=== PATIENT | female | born 1990 | race Caucasian/White ===

== ENCOUNTER 2019-12-09 14:24 | Outpatient (CLI) | payer OTHER, SELFPAY ==
--- NOTE | ~2019-12-09 | US_ITS ---
EXAMINATION: US retroperitoneal comp DATE: 12/09/2019 14:46 INDICATION: Frequent urinary tract infection TECHNIQUE: Multiple grayscale and Doppler ultrasound images of the kidneys were obtained. COMPARISON: None. FINDINGS: The right kidney measures 10.7 x 4.5 x 5.3 cm. The left kidney measures 10.2 x 5.1 x 5.2 cm . The kidneys demonstrate normal parenchymal echogenicity. There appears to be an IUD in the uterus. There is no hydronephrosis. The bladder is normal. IMPRESSION: 1. Normal kidneys without hydronephrosis. Reviewed, dictated and finalized at location A.
== END 2019-12-09 14:25 | disposition home or self-care (01) ==
PROVIDERS: PCP Internal Medicine; Visit Provider Internal Medicine
DX: Z87.440 Personal history of urinary (tract) infections (principal)
CPT/HCPCS: 76770

== ENCOUNTER 2020-01-18 22:36 | Emergency (ER) | payer OTHER, SELFPAY ==
[2020-01-18 22:48] VITALS: BP 146/82; PULSE 92; RESP 16; TEMP 36.6; O2SAT 99
--- NOTE | 2020-01-18 22:57 | ED.GENADULT ---
HPI - General Adult General Chief complaint: Abdominal Pain Stated complaint: rt sided abd pain Source: patient Mode of arrival: ambulatory Limitations: no limitations History of Present Illness Onset (ago): day(s) Radiation: abdomen Severity: moderate Severity scale (1-10): 4 Quality: burning and aching Pain Consistency: constant Relieving factors: none Exacerbating factors: none Associated symptoms: denies other symptoms Related Data Home Medications Medication Instructions Recorded Confirmed carvedilol 25 mg PO BID 09/21/19 09/21/19 enalapril maleate 10 mg PO DAILY 09/21/19 09/21/19 spironolactone 25 mg PO DAILY 09/21/19 09/21/19 Allergies Allergy/AdvReac Type Severity Reaction Status Date / Time Penicillins Allergy Unknown Nausea Verified 09/21/19 15:53 Sulfa (Sulfonamide Allergy Unknown Nausea Verified 09/21/19 15:53 Antibiotics) Review of Systems Review of Systems: All systems reviewed & are unremarkable except as noted in HPI and below PMFSH Past Medical History Medical History dilated cardiomyopathy Family History Family History Father Hypertension Patient's father is in good health Family history of cardiovascular disease Mother Patient's mother is in good health Grandparent Diabetes mellitus Asthma Social History Social History Smoking status: Never smoker Alcohol intake: current Exam Const: General: no acute distress and alert Orientation/consciousness: patient oriented x3 HENMT: Head: normal to inspection Eyes: Conjunctivae: conjunctivae normal Pupils: Equal, round and reactive pupils present Neck: Neck: normal visual inspection and no lymphadenopathy Chest: Chest palpation & inspection: normal inspection of the chest Resp: Effort & Inspection: normal respiratory effort Cardio: Rate: regular rate Rhythm: regular rhythm GI: GI Palp: Yes Soft to palpation and Yes Tenderness to palpation present (GI) ( Suprapubic tenderness) : General: Yes no CVA tenderness Back/Spine/Pelvis: Back: no CVA tenderness Skin: General skin exam: normal color Rashes: no rashes Neuro: General: patient oriented x3, moves all extremities and no meningeal signs Speech: normal speech Extrem: General: normal to inspection Psych: Mental Status: mental status grossly normal Course Vital Signs Vital signs: Vital Signs Temperature 36.6 C 01/18/20 22:48 Pulse Rate 92 01/18/20 22:48 Respiratory Rate 16 01/18/20 22:48 Blood Pressure 146/82 H 01/18/20 22:48 Pulse Oximetry 99 01/18/20 22:48 Temperature 36.6 C 01/18/20 22:48 Pulse Rate 92 01/18/20 22:48 Respiratory Rate 16 01/18/20 22:48 Blood Pressure 146/82 H 01/18/20 22:48 Pulse Oximetry 99 01/18/20 22:48 Medical Decision Making Vital Signs Vital Signs: Vital Signs Temperature 36.6 C 01/18/20 22:48 Pulse Rate 92 01/18/20 22:48 Respiratory Rate 16 01/18/20 22:48 Blood Pressure 146/82 H 01/18/20 22:48 Pulse Oximetry 99 01/18/20 22:48 Temperature 36.6 C 01/18/20 22:48 Pulse Rate 92 01/18/20 22:48 Respiratory Rate 16 01/18/20 22:48 Blood Pressure 146/82 H 01/18/20 22:48 Pulse Oximetry 99 01/18/20 22:48 Critical Care Time Critical Care Time Critical Care Time: No Discharge Plan Discharge Clinical Impression: UTI (urinary tract infection) Qualifiers: Urinary tract infection type: site unspecified Hematuria presence: without hematuria Qualified Code(s): N39.0 - Urinary tract infection, site not specified Patient Disposition: Home, Self-Care Condition: Stable Instructions: Antibiotic Form Additional Instructions: take medicine as prescribed and follow-up primary care physician if symptoms persist or worsen. Prescriptions: New nitrofurantoin monohy
[2020-01-18 23:10] LABS: Add Urine Microscopic? YES; Appearance Urine Sl Cloudy (Clear); Bilirubin Urine Negative (Negative); Blood Urine 2+ (Negative); Color Urine Straw (Yellow); Glucose Urine UA Negative (Negative); Ketones Urine Negative (Negative); Leukocyte Esterase Ur 1+ (Negative); Nitrate Urine Negative (Negative); Protein Urine Negative (Negative); Urobilinogen Urine 0.2 mg/dL (0.2-1.0)
[2020-01-18] MEDS: NITROFURANTOIN MONOHYD MACROCR 100 MG CAP PO (23:11)
[2020-01-18] MEDS: TRAMADOL HCL 50 MG TABLET PO (23:15)
[2020-01-18 23:17] LABS: Bacteria Urine 2+ /hpf; Squamous Epithelial Cell Urine Few /hpf (Few); WBC Urine 16-20 /hpf (0-3)
[2020-01-18 23:18] VITALS: BP 146/82; PULSE 92; O2SAT 99
== END 2020-01-18 23:20 | disposition home or self-care (01) ==
PROVIDERS: Emergency Provider Emergency Medicine; PCP Internal Medicine
DX: N39.0 Urinary tract infection, site not specified (principal)
CPT/HCPCS: 81001; 99283; A9270

== ENCOUNTER 2021-09-14 11:55 | Outpatient (CLI) | payer BC, SELFPAY ==
[2021-09-14 12:50] LABS: SARS-CoV-2 RNA PCR Negative (Negative)
[2021-09-14 15:04] LABS: Influenza A QL RT-PCR Negative (Negative); Influenza B QL RT-PCR Negative (Negative)
== END 2021-09-14 11:56 | disposition home or self-care (01) ==
LOC: CHSLAB 12:01
PROVIDERS: PCP Internal Medicine; Visit Provider Internal Medicine
DX: J06.9 Acute upper respiratory infection, unspecified (principal); Z20.822 Contact with and (suspected) exposure to COVID-19
CPT/HCPCS: 87502; C9803; U0003; U0005

== ENCOUNTER 2022-11-08 10:00 | Outpatient (CLI) | payer OTHER, SELFPAY ==
[2022-11-08 21:09] LABS: Anion Gap 5 mmol/L (8-16); Blood Urea Nitrogen 11 mg/dL (7-17); Calcium 9.3 mg/dL (8.4-10.2); Carbon Dioxide 30 mmol/L (22-30); Chloride 101 mmol/L (98-107); Estimated Glomerular Filt Rate > 60; Glucose 124 mg/dL (65-110); Potassium 4.4 mmol/L (3.4-5.0); Sodium 136 mmol/L (137-145)
== END 2022-11-08 10:01 | disposition home or self-care (01) ==
LOC: ANHGOSHLAB 10:04
PROVIDERS: PCP Internal Medicine
DX: O90.3 Peripartum cardiomyopathy (principal); Z3A.00 Weeks of gestation of pregnancy not specified
CPT/HCPCS: 36415; 80048

== ENCOUNTER 2023-01-28 09:43 | Emergency (ER) | payer OTHER, SELFPAY ==
[2023-01-28 09:56] VITALS: BP 137/82; PULSE 98; RESP 16; TEMP 36.3; O2SAT 100
--- NOTE | 2023-01-28 09:57 | ED.URI ---
HPI - URI/Sore Throat General Chief Complaint: Upper Respiratory Infection Stated Complaint: sore throat Source: patient and RN notes reviewed History of Present Illness HPI Narrative: 32-year-old female presents to urgent care with complaints of a sore throat, headache, and some congestion since yesterday. Patient denies any fevers, chills, ear pain, vomiting, chest pain, shortness of breath. Patient states she has taken Zyrtec and Benadryl for her symptoms. Some parts of this dictation were generated by voice recognition software and may contain typographical and/or grammatical inaccuracies. Related Data Home Medications Medication Instructions Recorded Confirmed carvedilol 25 mg tablet 25 mg PO BID 09/21/19 01/18/20 enalapril maleate 10 mg tablet 10 mg PO DAILY 09/21/19 01/18/20 spironolactone 25 mg tablet 25 mg PO DAILY 09/21/19 01/18/20 dapagliflozin 5 mg tablet (Farxiga) mg 01/28/23 sacubitril 24 mg-valsartan 26 mg tablet 01/28/23 tablet (Entresto) Allergies Allergy/AdvReac Type Severity Reaction Status Date / Time Penicillins Allergy Unknown Nausea Verified 01/28/23 09:49 Sulfa (Sulfonamide Allergy Unknown Nausea Verified 01/28/23 09:49 Antibiotics) Review of Systems Review of Systems: Pertinent positives and pertinent negatives per HPI. [facility] Past Medical History Medical History (Updated 01/28/23 @ 10:05 by Milena Licea APRN) dilated cardiomyopathy Family History Family History Father Hypertension Patient's father is in good health Family history of cardiovascular disease Mother Patient's mother is in good health Grandparent Diabetes mellitus Asthma Social History Social History Smoking status: Never smoker Alcohol intake: current Comments At the time of my signature, I reviewed and agree with the nursing past medical, surgical, social, and family history. There is no relevant family history pertinent to the patient complaint. Exam Narrative: GENERAL: This is a well-nourished, well-developed patient, in no apparent distress. HEAD: normocephalic, atraumatic. EYES: Sclera clear/white. Vision is grossly intact. EARS: External ears normal, auditory canals clear and without drainage, TMs normal without perforation. Hearing grossly intact. NOSE: External nose normal with no obvious nasal discharge, nares without redness, no rhinorrhea. THROAT: Mucous membranes moist, posterior pharynx clear. NECK: Neck supple, non-tender without lymphadenopathy, masses or thyromegaly. CARDIOVASCULAR: Regular rate and rhythm without murmurs, gallops, or rubs. RESPIRATORY: Clear to auscultation. Breath sounds equal bilaterally. No wheezes, rales, or rhonchi. SKIN: warm, intact with no suspicious lesions or rash, good texture and turgor. NEURO: awake, alert, and oriented to person, place and time. There were no obvious focal neurologic abnormalities. Course Course Level of Care: Express Care Visit Vital Signs Vital signs: Vital Signs Temperature 97.4 F L 01/28/23 09:56 Pulse Rate 98 01/28/23 09:56 Respiratory Rate 16 01/28/23 09:56 Blood Pressure 137/82 01/28/23 09:56 Pulse Oximetry 100 01/28/23 09:56 Temperature 97.4 F L 01/28/23 09:56 Pulse Rate 98 01/28/23 09:56 Respiratory Rate 16 01/28/23 09:56 Blood Pressure 137/82 01/28/23 09:56 Pulse Oximetry 100 01/28/23 09:56 reviewed MDM - URI/Sore Throat MDM Narrative Medical decision making narrative: Viral illness may last between 7-21 days; antibiotics do not cure viral illness and are NOT recommended at this time. Also, recommend symptomatic treatment includes: rest, fluids, and increase humidity of the air at home. Recommend Acetaminophen as directed on the bottle to reduce fever, pain, headache. Please schedule a follow-up visit with your personal physic
== END 2023-01-28 10:06 | disposition home or self-care (01) ==
PROVIDERS: Emergency Provider Nurse Practitioner Family; PCP Internal Medicine
DX: J02.9 Acute pharyngitis, unspecified (principal)
CPT/HCPCS: 87081; 87880; 99213; G0463

== ENCOUNTER 2023-05-01 10:10 | Outpatient (CLI) | payer OTHER, SELFPAY ==
[2023-05-01 14:26] LABS: Anion Gap 10 mmol/L (8-16); Blood Urea Nitrogen 11 mg/dL (7-17); Calcium 9.6 mg/dL (8.4-10.2); Carbon Dioxide 28 mmol/L (22-30); Chloride 101 mmol/L (98-107); Estimated Glomerular Filt Rate > 60; Glucose 111 mg/dL (65-110); Magnesium 2.4 mg/dL (1.6-2.3); Sodium 139 mmol/L (137-145)
[2023-05-01 14:37] LABS: NT Pro B Type Natriuretic Pept 61 pg/mL (19.9-100)
== END 2023-05-01 10:11 | disposition home or self-care (01) ==
LOC: ANHGOSHLAB 10:15
PROVIDERS: PCP Internal Medicine
DX: O90.3 Peripartum cardiomyopathy (principal)
CPT/HCPCS: 36415; 80048; 83735; 83880

== ENCOUNTER 2023-11-09 09:14 | Emergency (ER) | payer OTHER, SELFPAY ==
[2023-11-09 09:19] VITALS: BP 145/73; PULSE 109; RESP 16; TEMP 35.8; O2SAT 99
--- NOTE | 2023-11-09 10:26 | ED.URI ---
HPI - URI/Sore Throat General Chief Complaint: Upper Respiratory Infection Stated Complaint: congestion/headache/throat Time Seen by Provider: 11/09/23 10:20 Source: patient, RN notes reviewed and old records reviewed Mode of arrival: ambulatory Limitations: no limitations History of Present Illness HPI Narrative: 33 year old female who presents to [facility] care with complaints of sore throat,fever, cough, ear pain and sinus pressure since Sunday of this week. Patient reports that she has been taking Zyrtec and Benadryl for her symptoms. Patient reports that highest fevers are around a 100F. Patient reports no body aches, denies any shortness of breath, no nausea vomiting or diarrhea. MD elicited complaint: fever, cough, sore throat, sinus pain (ear pain) and other Onset (ago): day(s) (4) Pain scale (0-10): 4 Able to tolerate fluids by mouth: Yes Treatments prior to arrival: other (Zyrtec and Benadryl) Related Data Home Medications Medication Instructions Recorded Confirmed carvedilol 25 mg tablet 25 mg PO BID 09/21/19 01/28/23 spironolactone 25 mg tablet 25 mg PO DAILY 09/21/19 01/28/23 sacubitril 24 mg-valsartan 26 mg 1 tablet PO BID 01/28/23 01/28/23 tablet (Entresto) Allergies Allergy/AdvReac Type Severity Reaction Status Date / Time Penicillins AdvReac Unknown Nausea Verified 11/09/23 10:17 Sulfa (Sulfonamide AdvReac Unknown Nausea Verified 11/09/23 10:17 Antibiotics) Review of Systems Review of Systems: CONSTITUTIONAL:Reports malaise, chills, sweats, or fever. EYES: Denies visual changes, redness, or discharge. ENT: Reports rhinorrhea, congestion, sinus pain,left otalgia and sore throat. CARDIOVASCULAR: Denies chest pain, palpitations, or edema. RESPIRATORY: Reports cough.? Denies dyspnea. GASTROINTESTINAL: Denies abdominal pain, nausea, vomiting, diarrhea SKIN: Denies rash or itching. MUSCULOSKELETAL: Denies myalgia. NEUROLOGIC: Reports headache. All systems reviewed & are unremarkable except as noted in HPI and below PMFSH Past Medical History Medical History (Updated 11/10/23 @ 13:14 by Makayla Haque NP) Hypertension Pacemaker dilated cardiomyopathy Surgical History Surgical History (Updated 11/10/23 @ 13:13 by Makayla Haque NP) Previous section Family History Family History Father Hypertension Patient's father is in good health Family history of cardiovascular disease Mother Patient's mother is in good health Grandparent Diabetes mellitus Asthma Social History Social History Smoking status: Never smoker Alcohol intake: current Comments At time of signature, agree with nursing past medical, surgical, social and family history. There is no relevant family history pertinent to the presenting complaint Exam Narrative: GENERAL: Well-appearing, well-nourished, and in no acute distress. HEAD: Normocephalic EYES: PERRLA, conjunctivae clear ENT: Nares clear, turbinates edematous and erythematous, clear discharge. Mucous membranes moist.Left TM red ,Right TM pearly hernadez with dull light reflex; no tragal tenderness. Oropharynx erythematous without lesions. Tonsils not enlarged and without exudate, no drooling, no hoarseness, no trismus, uvula midline. NECK: Supple. No lymphadenopathy CHEST: Clear to auscultation, breath sounds equal. No wheezing, rhonchi, rales, or stridor. No respiratory distress, speaks in full sentences.coughSAO2 99% on room air HEART: Regular rate and rhythm. No murmur heard. SKIN: Warm, dry, no rash. NEURO: Alert and oriented x3. PSYCH: Normal mood and affect Course Course Emergency Course: Patient is aware of diagnosis, understands and agrees to treatment plan.? Anticipatory guidance given.? Patient agrees to follow-up as directed and is aware of reasons to seek care at t
== END 2023-11-09 10:38 | disposition home or self-care (01) ==
PROVIDERS: Emergency Provider Registered Nurse; PCP Internal Medicine
DX: H65.02 Acute serous otitis media, left ear (principal); J06.9 Acute upper respiratory infection, unspecified; I10 Essential (primary) hypertension; Z95.0 Presence of cardiac pacemaker
CPT/HCPCS: 87081; 87880; 99213; G0463

== ENCOUNTER 2025-03-10 11:46 | Outpatient (CLI) | payer OTHER, SELFPAY ==
--- NOTE | ~2025-03-10 | XR_ITS ---
Left elbow Technique: AP, oblique, and lateral views were obtained. Clinical History: Pain Findings: No acute fracture or dislocation is seen. Osseous alignment is anatomic. Joint spaces are p reserved. There is no displacement of the fat pads, and soft tissues are unremarkable. Impression: Unremarkable radiographs. Reviewed, dictated and finalized at location . Impression: Unremarkable radiographs.
--- NOTE | ~2025-03-10 | XR_ITS ---
Cervical Spine: AP, lateral, open-mouth views Clinical History: Pain Findings: There is straightening of the normal cervical lordosis. The vertebral bodies and posterior elements appear intact. The intervertebral disc spaces are well maintained. Pre-vertebral soft tiss ues are unremarkable. Impression: Straightening of the normal cervical lordosis, otherwise unremarkable exam. Reviewed, dictated and finalized at location . Impression: Straightening of the normal cervical lordosis, otherwise unremarkable exam.
--- OUTSIDE RECORDS SUMMARY | 2025-03-10 12:41 | XMS_ITS | Encounter Summary ---
Author Organization [facility] Address [address] [place] [address] Phone Care Team Providers Care Proof Coin Collector Name Role Phone Naomy Lai MD Primary Care Provider [phone] No, Physician Primary Care Provider [phone] Naomy Lai MD Primary Care Provider [phone] Naomy Lai MD Primary Care Provider [phone] Nakita, Physician Primary Care Provider [phone] Naomy Lai MD Primary Care Provider [phone] Joan Oviedo MD Primary Care Provider Sen Menon MD Primary Care Provider [phone] Concepcion Andrea MD Unavailable [phone] Yolie Lyon RN Unavailable Unava ilable Ruperto Benavides RN Unavailable Unav ailable Encounter Details Date Type Department Care Team (Late st Contact Info) Description 01/25/2017 Orders Only [facility] Provider, MD Yang [address] [place] [id number] Social History Tobacco Use Types Packs/Day Years Used Date Smoking Tobacco: Never Assessed Comments Unknown Sex and Gender Information Value Date Recorded Sex Assigned at Not on file 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 us Historical Provider [facility] Final Result documented in this encounter Visit Diagnoses Not on filedocumented in this encounter Care Teams Proof Coin Collector Relationship Specialty Start Date End Date Naomy Lai MD [address] [place] [address] PCP - General 01/25/17 10/02/17 No, Physician PCP - General 10/03/17 10/03/17 Naomy Lai MD [address] [place] [address] PCP - General 10/04/17 10/11/17 Naomy Lai MD [address] [place] [address] PCP - General 10/12/17 10/12/17 No, Physician PCP - General 10/13/17 10/21/17 Naomy Lai MD [address] [place] [address] PCP - General 10/22/17 01/09/18 Joan Oviedo MD [address] [facility] [address] [place] [address] PCP - General 01/10/18 10/19/20 Sen Menon MD [address] [address] [place] [address] PCP - General Internal Medicine 10/20/20 Concepcion Andrea MD [address] [facility] [address] [place] [address] Consulting Physician Cardiology 03/05/24 Yolie Lyon, cotton bag clipperTube Test Technician Cardiology 03/05/24 Ruperto Benavides, cotton bag clipperTube Test Technician Cardiology 03/05/24 documented as of this encounter
--- OUTSIDE RECORDS SUMMARY | 2025-03-10 12:41 | XMS_ITS | Encounter Summary ---
Author Organization [facility] Address [address] [place] [address] Phone Care Team Providers Care Senior Power Plant Operator Name Role Phone Naomy Lai MD Primary Care Provider [phone] No, Physician Primary Care Provider [phone] Naomy Lai MD Primary Care Provider [phone] Naomy Lai MD Primary Care Provider [phone] Nakita, Physician Primary Care Provider [phone] Naomy Lai MD Primary Care Provider [phone] Joan Oviedo MD Primary Care Provider Sen Menon MD Primary Care Provider [phone] Concepcion Andrea MD Unavailable [phone] Yolie Lyon RN Unavailable Unava ilable Ruperto Benavides RN Unavailable Unav ailable Encounter Details Date Type Department Care Team (Late st Contact Info) Description 02/04/2016 Orders Only [facility] Provider, MD Yang [address] [place] [address] Social History Tobacco Use Types Packs/Day Years Used Date Smoking Tobacco: Never Assessed Comments Unknown Sex and Gender Information Value Date Recorded Sex Assigned at Not on file 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 us Historical Provider [facility]OCK[facility] Final Result documented in this encounter Visit Diagnoses Not on filedocumented in this encounter Care Teams Senior Power Plant Operator Relationship Specialty Start Date End Date Naomy Lai MD [address] [place] [address] PCP - General 01/25/17 10/02/17 No, Physician PCP - General 10/03/17 10/03/17 Naomy Lai MD [address] [place] [address] PCP - General 10/04/17 10/11/17 Naomy Lai MD [address] [place] [address] PCP - General 10/12/17 10/12/17 No, Physician PCP - General 10/13/17 10/21/17 Naomy Lai MD [address] [place] [address] PCP - General 10/22/17 01/09/18 Joan Oviedo MD [address] [facility] [address] [place] [address] PCP - General 01/10/18 10/19/20 Sen Menon MD [address] [place] [address] PCP - General Internal Medicine 10/20/20 Concepcion Andrea MD [address] [facility] [address] [place] [address] Consulting Physician Cardiology 03/05/24 Yolie Lyon, consumer recruiterPipe Finishing Supervisor Cardiology 03/05/24 Ruperto Benavides, consumer recruiterPipe Finishing Supervisor Cardiology 03/05/24 documented as of this encounter
--- OUTSIDE RECORDS SUMMARY | 2025-03-10 12:41 | XMS_ITS | Encounter Summary ---
Author Organization [facility] Address [address] [place] [address] Phone Care Team Providers Care Filament Coil Winder Name Role Phone Naomy Lai MD Primary Care Provider [phone] No, Physician Primary Care Provider [phone] Naomy Lai MD Primary Care Provider [phone] Naomy Lai MD Primary Care Provider [phone] Nakita, Physician Primary Care Provider [phone] Naomy Lai MD Primary Care Provider [phone] Joan Oviedo MD Primary Care Provider Sen Menon MD Primary Care Provider [phone] Concepcion Andrea MD Unavailable [phone] Yolie Lyon RN Unavailable Unava ilable Ruperto Benavides RN Unavailable Unav ailable Encounter Details Date Type Department Care Team (Late st Contact Info) Description 08/12/2017 Orders Only [facility] Provider, MD Yang [address] [place] [address] Social History Tobacco Use Types Packs/Day Years Used Date Smoking Tobacco: Never Assessed Comments Unknown Sex and Gender Information Value Date Recorded Sex Assigned at Not on file 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 us Historical Provider [facility] CROCKER Final Result documented in this encounter Visit Diagnoses Not on filedocumented in this encounter Care Teams Filament Coil Winder Relationship Specialty Start Date End Date Naomy Lai MD [address] [place] [address] PCP - General 01/25/17 10/02/17 No, Physician PCP - General 10/03/17 10/03/17 Naomy Lai MD [address] [place] [address] PCP - General 10/04/17 10/11/17 Naomy Lai MD [address] [place] [address] PCP - General 10/12/17 10/12/17 No, Physician PCP - General 10/13/17 10/21/17 Naomy Lai MD [address] [place] [address] PCP - General 10/22/17 01/09/18 Joan Oviedo MD [address] [facility] [address] [place] [address] PCP - General 01/10/18 10/19/20 Sen Menon MD [address] [place] [address] PCP - General Internal Medicine 10/20/20 Concepcion Andrea MD [address] [facility] [address] [place] [address] Consulting Physician Cardiology 03/05/24 Yolie Lyon, legal consultantMold Filling Operator Cardiology 03/05/24 Ruperto Benavides, legal consultantMold Filling Operator Cardiology 03/05/24 documented as of this encounter
--- OUTSIDE RECORDS SUMMARY | 2025-03-10 12:41 | XMS_ITS | Encounter Summary ---
Author Organization [facility] Address [address] [place] [address] Phone Care Team Providers Care Licensed Psychologist Director Name Role Phone Joan Oviedo MD Primary Care Provider Sen Menon MD Primary Care Provider [phone] Concepcion Andrea MD Unavailable [phone] Yolie Lyon RN Unavailable Unava ilable Ruperto Benavides RN Unavailable Unav ailable Encounter Details Date Type Department Care Team (Late st Contact Info) Description 01/10/2018 Orders Only [facility] ProviderYang MD [address] [place] [address] Social History Tobacco Use Types Packs/Day Years Used Date Smoking Tobacco: Never Comments Unknown Sex and Gender Information Value Date Recorded Sex Assigned at Not on file Legal Sex Female 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 us Historical Provider [facility] CROCKER Final Result documented in this encounter Visit Diagnoses Not on filedocumented in this encounter Care Teams Licensed Psychologist Director Relationship Specialty Start Date End Date Joan Oviedo MD [address] [place] [address] PCP - General 01/10/18 10/19/20 Sen Menon MD [address] [address] [place] [address] PCP - General Internal Medicine 10/20/20 Concepcion Andrea MD [address] [address] Consulting Physician Cardiology 03/05/24 Yolie Lyon, digital forensics examinerSpeed Operator Cardiology 03/05/24 Ruperto Benavides, digital forensics examinerSpeed Operator Cardiology 03/05/24 documented as of this encounter
--- OUTSIDE RECORDS SUMMARY | 2025-03-10 12:42 | XMS_ITS | Clinical Summary ---
Author Organization [facility] Lubna Mckenzie nsion Address [address] [place] [address] Care Team Providers Care Application Defense Manager Name Role Phone Sen Menon MD Primary Care Provider [phone] Concepcion Andrea MD Unavailable [phone] Yolie Lyon RN Unavailable Unava ilable Ruperto Benavides RN Unavailable Unav ailable Allergies Active Allergy Reactions Criticality Noted Date Comments Penicillins Vomiting,Nausea Only Low 06/21/2011 Sulfa (Sulfonamide Antibiotics) Nausea only Low Medications spironolactone (ALDACTONE) 25 mg tablet Take 1 tablet (25 mg total) by mouth daily 90 tablet 3 4 07/29/20 25 Active sacubitriL-vals michaela (ENTRESTO) 24-26 mg tabletIndicatio ns:chronic heart failure Take 1 tablet by mouth 2 (two) times a day 180 tablet 3 5 11/28/19 26 Active carvediloL (COREG) 25 mg tablet Take 0.5 tablets (12.5 mg total) by mouth 2 (two) times a day 30 tablet 5 04/01/20 25 Active carvediloL (COREG) 25 mg tablet Take 0.5 tablets (12.5 mg total) by mouth 2 (two) times a day 90 tablet 5 03/02/20 25 Discontinu ed(Reorder ) Active Problems Problem Noted Date Diagnosed Date 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, dual chamber 12/2015 [facility]), inability to place an LV lead at that time. -Follows with Dr. Andrea, most recent LVEF 27% in 09/2022 -Repeat echocardiogram scheduled at time of FU visit with Dr Andrea in 02/2025 Assessment & Plan (04/12/2018 1:14 PM CDT): She has had partial recovery of her LV function. She is on a good regimen which he is tolerating well at this time. We will continue her on carvedilol, enalapril, and spironolactone. We will repeat an echocardiogram on return in 6 months. ICD (implantable cardioverter-defibrillator) in place 04/12/2018 Assessment & Plan (01/06/2025 1:29 PM CDT): -Dual chamber ICD is functioning appropriately as programmed -Lead impedances, sensing, and thresholds are stable -No programming changes -Continue remote monitoring quarterly -She has no history of ICD shocks or required any ICD therapies -Her ICD is nearing LEWIS ~6 months, we discussed generator change. If decline in LVEF or worsening HF symptoms, can consider re-attempting transvenous LV lead or epicardial LV lead at time of generator change. Assessment & Plan (04/12/2018 1:15 PM CDT): She will continue to follow up with Dr. Cagle in electrophysiology. Class 1 obesity without seri ous comorbidity with body mass index (BMI) of 33.0 to 33.9 in adult 04/12/2018 Assessment & Plan (04/12/2018 1:15 PM CDT): We had a discussion about strategies for weight loss in the barriers she is facing for weight loss. I will refer her to cardiac rehab at [facility]. She does have a lot of anxiety about exercising in the setting of her systolic heart failure. I think that the cardiac rehab will help build her confidence in her capacity to exercise. I also encouraged her to find a local weight watchers program and the support from that might be beneficial in losing weight. I encouraged her to target a weight loss goal of 1 lb per month. Encounters Date Type Department Care Team Description 01/07/2025 Orders Only [facility] Cardiology [facility] Medical Office Building [address] [place] [address] Reese Cagle MD 01/06/2025 1:00 PM CDT Office Visit [facility] Cardiology [address] [place] [address] 8th [place] [address] [place] [address] Sagrario Leon NP Peripartum cardiomyopathy (Primary Dx); ICD (implantable cardioverter-defibrill ator) in place 01/06/2025 12:30 PM CDT Ancillary Procedure [facility] Cardiology [address] [place] [address] 8th [place] [address] [place] [id number] NICM (nonischemic cardiomyopathy) (HCC) (Primary Dx); Fitting or adjustment of automatic implantable cardioverter-defibrill ator; Peripartum cardiomyopathy from Last 3 Months Surgical History Surgery Date Site/Laterality Comments [place] DELIVERY ONLY Section - (Added by TW Conv) CARDIAC PACEMAKER PLACEMENT 09/24/2015 - 09/23/2016 Medical History Medical History Date Comments Personal history of other di seases of the nervous system and sense organs History of migrain e with aura - (Added by TW Conv) Personal history of other di seases of the circulatory system History of hypertension - (A dded by TW Conv) Migraine Family History Medical History Relation Name Comments Heart attack Father Family history of myocardial infarction - (Added by TW Conv) Hypertension Father Family history of hypertension - (Added by TW Conv)/Family history of hypertension - (Added by TW Conv) Breast cancer Mother's Sister Relation Name Status Comments Father Mother's Sister Social History Tobacco Use Types Packs/Day Years Used Date Smoking Tobacco: Never Smokeless Tobacco: Never AUDIT-C Answer Date Recorded Frequency of Alcohol Consumption Not on file 05/07/2023 Q2: How many drinks containi ng alcohol do you have on a typical day when you are drinking? 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 Gender Identity Female 06/26/2024 9:16 PM CDT Sexual Orientation Straight 06/26/2024 9: 16 PM CDT Obstetrics History Para Term AB IAB SAB Ectopic Multiple Livin g Live Births 1 1 1 1 1 Date Outcome GA Total Labor Labor/2nd/3rd Weight Sex Type Anes PTL Vera A1 A5 Name Clin 2015 Term M CS-Un spec Living Last Filed Vital Signs Vital Sign Reading Time Taken Comments Blood Pressure 133/83 01/06/2025 12:35 PM CDT Pulse 82 01/25/2023 10:23 AM CDT Temperature 32.8 C (91 F) 01/06/2025 12:35 PM CDT Respiratory Rate - - Oxygen Saturation 98% 01/06/2025 12:35 PM CDT Inhaled Oxygen Concentration - - Weight 88.6 kg (195 lb 6.4 oz) 01/06/2025 12:35 PM CDT Height 157.5 cm (5' 2) 01/06/2025 12:35 PM CDT Body Mass Index 35.74 01/06/2025 12:35 PM CDT Plan of Treatment Health Maintenance Due Date Last Done Comments Cervical Cancer Screening 1992 Depression Screening 1992 Hepatitis C Screening 1992 DTaP/Tdap/Td Vaccine (1 - Tdap) 2003 Varicella Vaccines (1 of 2 - 13+ 2-dose series) 2005 Hepatitis B Screening 2010 Regular Well Visit/Exam 18-64 2010 Influenza Vaccine (Season Ended) 2025 08/02/20 15 HPV Vaccines Aged Out No longer eligi ble based on patient's age to complete this topic Pneumococcal vaccine <65 Aged Out No longer eligible based on patient's age to complete this topic Procedures Procedure Name Priority Date/Time Associated Diagnosis Comments DEVICE CHECK - REMOTE Routine 01/07/2025 7:58 AM CDT DEVICE CHECK - IN OFFICE Routine 01/06/2025 12:28 PM CDT NICM (nonischemic cardiomyopathy) (HCC) Fitting or adjustment of automatic implantable cardioverter-defibrill ator Peripartum cardiomyopathy from Last 3 Months Results * DEVICE CHECK - REMOTE (01/07/2025 7:58 AM CDT) Anatomical Region Laterality Modality Other 01/07/2025 7:58 AM CDT Narrative 01/13/2025 4:24 PM CDT Interpretation Summary: Battery and Leads (BL) Normal parameters noted on battery and lead(s) --- 6 months remaining (this is an estimate based on prior usage) Presenting Rhythm ([place]) Atrial Sensing-Ventricular Sensing (-VS) --- rate 72 Arrhythmic events (AE) No new arrhythmic events in monitoring period Transmission Information (TI) Device Summary Report Procedure Note Reese Cagle MD - 01/13/2025 Interpretation Summary: Battery and Leads (BL) Normal parameters noted on battery and lead(s) --- 6 months remaining(this is an estimate based on prior usage) Presenting Rhythm ([place]) Atrial Sensing-Ventricular Sensing (-VS) --- rate 72 Arrhythmic events (AE) No new arrhythmic events in monitoring period Transmission Information (TI) Device Summary Report Reese Cagle MD CV CARDIAC SERVICES PRO CEDURES Final Result * DEVICE CHECK - IN OFFICE (01/06/2025 12:28 PM CDT) Anatomical Region Laterality Modality Other 01/06/2025 2:00 AM CDT Narrative 01/09/2025 8:28 AM CDT Interpretation Summary: Battery and Leads (BL) Less than 1 year of battery longevity noted --- Estimated battery longevity 6.1 MONTHS Presenting Rhythm ([place]) Atrial Sensing-Ventricular Sensing (-VS) --- NSR 97 bpm Arrhythmic events (AE) No new arrhythmic events in monitoring period Transmission Information (TI) Device Summary Report Procedure Note Lucio Currie MD - 01/09/2025 Interpretation Summary: Battery and Leads (BL) Less than 1 year of battery longevity noted --- Estimated batterylongevity 6.1 MONTHS Presenting Rhythm ([place]) Atrial Sensing-Ventricular Sensing (-VS) --- NSR 97 bpm Arrhythmic events (AE) No new arrhythmic events in monitoring period Transmission Information (TI) Device Summary Report Reese Cagle MD CV CARDIAC SERVICES PRO CEDURES Final Result from Last 3 Months Insurance [facility] [place] [place] [address] [place] [address] CHO[place] [address] Care Teams Application Defense Manager Relationship Specialty Start Date End Date Sen Menon MD PCP - General Internal Medicine 10/20/20 Concepcion Andrea MD [address] [address] Consulting Physician Cardiology 03/05/24 Yolie Lyon, upholstery handlerManagement Consultant Cardiology 03/05/24 Ruperto Benavides, upholstery handlerManagement Consultant Cardiology 03/05/24
--- OUTSIDE RECORDS SUMMARY | 2025-03-10 12:42 | XMS_ITS | Referral Summary ---
Author Organization [facility] Lubna Gómez Extelmira nsion Address [address] [place] [address] Care Team Providers Care Rating Officer Name Role Phone Sen Menon MD Primary Care Provider [phone] Concepcion Andrea MD Unavailable [phone] Yolie Lyon RN Unavailable Unava ilable Ruperto Benavides RN Unavailable Unav ailable Encounters Date Type Department Care Team Description 01/07/2025 Orders Only [facility] Cardiology [facility] Medical Office Building [address] [place] [phone] Reese Cagle MD 01/06/2025 1:00 PM CDT Office Visit [facility] Cardiology [address] [place] [address] 8th [place] [address] [place] [address] Sagrario Leon NP Peripartum cardiomyopathy (Primary Dx); ICD (implantable cardioverter-defibrill ator) in place 01/06/2025 12:30 PM CDT Ancillary Procedure [facility] Cardiology [address] [place] [address] Medicine 8th [place] [address] [place] [phone] NICM (nonischemic cardiomyopathy) (HCC) (Primary Dx); Fitting or adjustment of automatic implantable cardioverter-defibrill ator; Peripartum cardiomyopathy from Last 3 Months Allergies Active Allergy Reactions Criticality Noted Date [...] prevention ICD ([employer]. [place]on, dual chamber 12/2015 [facility]), inability to place an LV lead [...] will refer her to cardiac rehab at [facility]. She does have a lot of anxiety [...] loss goal of 1 lb per month. 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 Gender Identity Female 06/26/2024 9:16 PM CDT Sexual Orientation Straight 06/26/2024 9: 16 PM CDT Last Filed Vital Signs Vital Sign Reading [...] 01/06/2025 12:35 PM CDT Plan of Treatment Not on file Procedures Procedure Name Priority Date/Time Associated Diagnosis [...] estimate based on prior usage) Presenting Rhythm ([place]) Atrial Sensing-Ventricular Sensing (-VS) --- rate 72 Arrhythmic events (AE) No new arrhythmic events in monitoring period Transmission Information (TI) Device Summary Report Procedure Note Reese Cagle MD - 01/13/2025 Interpretation Summary: Battery and Leads (BL) Normal parameters noted on battery and lead(s) --- 6 months remaining(this is an estimate based on prior usage) Presenting Rhythm ([place]) Atrial Sensing-Ventricular Sensing (-VS) --- rate 72 Arrhythmic events (AE) No new arrhythmic events in monitoring period Transmission Information (TI) Device Summary Report us Reese Cagle MD CV CARDIAC SERVICES PRO CEDURES Final Result * DEVICE CHECK - IN OFFICE (01/06/2025 12:28 PM CDT) Anatomical Region Laterality Modality Other 01/06/2025 2:00 AM CDT Narrative 01/09/2025 8:28 AM CDT Interpretation Summary: Battery and Leads (BL) Less than 1 year of battery longevity noted --- Estimated battery longevity 6.1 MONTHS Presenting Rhythm ([place]) Atrial Sensing-Ventricular Sensing (-VS) --- NSR 97 bpm Arrhythmic events (AE) No new arrhythmic events in monitoring period Transmission Information (TI) Device Summary Report Procedure Note Lucio Currie MD - 01/09/2025 Interpretation Summary: Battery and Leads (BL) Less than 1 year of battery longevity noted --- Estimated batterylongevity 6.1 MONTHS Presenting Rhythm ([place]) Atrial Sensing-Ventricular Sensing (-VS) --- NSR 97 bpm Arrhythmic events (AE) No new arrhythmic events in monitoring period Transmission Information (TI) Device Summary Report Reese Cagle MD CV CARDIAC SERVICES PRO CEDURES Final Result from Last 3 Months Insurance [facility] CHOICE PLUS [facility] H[facility]/PPO Address: [facility] [address] [place] [address] [place] MEDICARE [facility] Address: [address] [address] [place] [address] [place] [address] CHOICE PR[place] [address] Care Teams Rating Officer Relationship Specialty Start Date End Date Sen Menon MD PCP - General Internal Medicine 10/20/20 Concepcion Andrea MD [address] [address] Consulting Physician Cardiology 03/05/24 Yolie Lyon, video game script writerSupervisor Inspection Room Cardiology 03/05/24 Ruperto Benavides, video game script writerSupervisor Inspection Room Cardiology 03/05/24
== END 2025-03-10 11:47 | disposition home or self-care (01) ==
PROVIDERS: PCP Internal Medicine; Visit Provider Internal Medicine
DX: M54.2 Cervicalgia (principal); M25.522 Pain in left elbow; M25.562 Pain in left knee; M43.8X2 Other specified deforming dorsopathies, cervical region
CPT/HCPCS: 72040; 73080; 73562

== ENCOUNTER 2025-03-16 09:12 | Outpatient (CLI) | payer OTHER, SELFPAY ==
[2025-03-16 09:51] LABS: Basophils Absolute Auto 0.06 K/mm3 (0.00-0.10); Basophils Percent Auto 0.6 % (0.0-1.0); Eosinophils Absolute Auto 0.43 K/mm3 (0.02-0.50); Eosinophils Percent Auto 4.4 % (1.0-6.0); Hematocrit 44.8 % (35.0-49.0); Hemoglobin 15.2 g/dL (12.0-15.0); Immature Granulocyte Absolute 0.04 K/mm3 (0.00-0.00); Immature Granulocyte Percent A 0.4 % (0.0-0.0); Lymphocytes Absolute Auto 3.28 K/mm3 (1.10-4.50); Lymphocytes Percent Auto 33.8 % (18.0-42.0); Mean Corpuscular HGB Conc 33.9 g/dL (32-36); Mean Corpuscular Hemoglobin 30.1 pg (27.0-31.0); Mean Corpuscular Volume 88.7 fL (78.0-102.0); Mean Platelet Volume 8.6 fl (9.2-11.8); Monocytes Percent Auto 6.2 % (2.0-11.0); Neutrophils Absolute Auto 5.29 K/mm3 (1.70-7.20); Neutrophils Percent Auto 54.6 % (50.0-70.0); Platelet Count Result 418 K/mm3 (150-420); Red Blood Count 5.05 M/mm3 (4.20-5.40); Red Cell Distribution Width 12.3 % (11.6-14.4); White Blood Count 9.7 K/mm3 (4.8-10.8)
[2025-03-16 09:57] LABS: Alanine Aminotransferase 28 U/L (6-35); Albumin Level 4.7 g/dL (3.5-5.1); Alkaline Phosphatase 64 U/L (38-126); Anion Gap 7 mmol/L (4-12); Aspartate Amino Transferase 27 U/L (14-36); Bilirubin,Total 0.5 mg/dL (0.2-1.3); Blood Urea Nitrogen 9 mg/dL (7-17); Calcium 9.6 mg/dL (8.4-10.2); Carbon Dioxide 27 mmol/L (22-30); Chloride 105 mmol/L (98-107); Cholesterol 212 mg/dL (0-200); Estimated Glomerular Filt Rate > 60; Glucose 102 mg/dL (65-110); HDL Direct 29 mg/dL; LDL Cholesterol Calculated 111 mg/dL (<130); Magnesium 2.2 mg/dL (1.6-2.3); Osmolality Calculated 286 mOsm/kg (285-295); Potassium 4.6 mmol/L (3.4-5.0); Sodium 139 mmol/L (137-145); Triglycerides 362 mg/dL (<150)
[2025-03-16 10:02] LABS: Hemoglobin A1C 5.7 % (<5.7)
[2025-03-16 10:06] LABS: NT Pro B Type Natriuretic Pept 68 pg/mL (19.9-100)
== END 2025-03-16 09:13 | disposition home or self-care (01) ==
LOC: CHSLAB 09:14
PROVIDERS: PCP Internal Medicine
DX: O90.3 Peripartum cardiomyopathy (principal)
CPT/HCPCS: 36415; 80053; 80061; 83036; 83735; 83880; 84443; 85025

== ENCOUNTER 2025-03-31 10:13 | Outpatient (RCR) | payer OTHER, SELFPAY ==
--- NOTE | 2025-03-31 11:55 | OPREHPOC ---
Outpatient Therapy Plan of Care This is a Multidisciplinary Plan of Care that may contain components documented by all disciplines (PT, OT, and ST.) PT Problem 1 PT Problem #1 Knowledge Deficit PT Goal 1 Goal / Goal Update The patient will be independent in a home exercise program. Target Visit 4 PT Problem 2 PT Problem #2 Pain PT Goal 1 Goal / Goal Update The patient will report no greater than 2/10 left upper back/shoulder pain with house chores of laundry and vacuuming. Target Visit 10 PT Problem 3 PT Problem #3 Impaired Functional Mobility PT Goal 1 Goal / Goal Update The patient will demonstrate 20% or less self perceived disability per the Back Index questionnaire. The patient will lift 10# floor to waist with proper body mechanics and no increased pain. Target Visit 10
--- NOTE | 2025-03-31 11:55 | PTOPEVAL1 ---
Assessment and note entered by Concepcion Snell, PT Evaluation Information Assessment Status Evaluation Subjective Information Kelly Swartz reports she hurt her left upper back in December 2024 when she overstretched. She had her massaging it and it started feeling better . In February 2025, she reached overhead with both arms to stretch and she felt a pull in her left shoulder blade. She reports the pain has returned and she has difficulty sleeping. She also notes trouble reaching down, doing laundry, and vacuuming. She is right hand dominant. She had a x -ray that was normal and she was referred to PT for tight muscles. She notes she gets pain in her left elbow and tingling into the pinky finger. These symptoms are aggravated by leaning on her elbow. Reported Pain Level Pain Score 3: Self Report Assessment PT Clinical Summary Kelly Swartz presents with left upper back and shoulder pain that started in December 2024 after overstretching. She has difficulty with reaching overhead, reaching down, sleeping, and performing house chores such as laundry and vacuuming. She objectively demonstrates decreased cervical AROM, tension and tenderness in the left upper and middle trapezius, poor posture, and positive special tests for cervical nerve root impingement and left shoulder impingement. She will benefit from skilled PT to address these limitations. Plan of Care Interventions Electrical Stimulation,Hot Pack/Cold Pack,Manual Therapy,Neuro Re-education,Patient/Caregiver Education,Therapeutic Activities,Therapeutic Exercise PT Services Indicated Yes Treatment Frequency and 2 times a week for 10 visits Duration These treatments will address the objective and functional deficits as defined above. The patient will be advanced safely and appropriately in order for the patient to progress towards his/her prior level of function. Additional exercises will be introduced and as well as a comprehensive home exercise program upon discharge, if needed, ?to ensure carryover of functional gains achieved in the clinic. This treatment plan has been reviewed and agreement upon by the patient.
--- NOTE | 2025-04-09 17:12 | PCPTNOTE ---
Patient called & cancelled scheduled appointment this date due.
--- NOTE | 2025-04-21 10:33 | PCPTNOTE ---
No call, no show. Left voicemail for pt.
--- NOTE | 2025-04-23 11:03 | PCPTNOTE ---
No call, no show. Voicemail left for pt.
== END 2025-06-29 23:59 | disposition home or self-care (01) ==
LOC: CHSPT 10:13
PROVIDERS: PCP Internal Medicine; Visit Provider Internal Medicine
DX: M54.6 Pain in thoracic spine (principal); M79.622 Pain in left upper arm
CPT/HCPCS: 97110; 97140; 97161